=== PATIENT | female | born 1985 | race Caucasian/White ===

== ENCOUNTER 2016-06-13 22:40 | Emergency (ER) | payer SELFPAY ==
[~2016-06-13] VITALS: Ht 160 cm; Wt 67.5 kg
[2016-06-13 22:46] VITALS: Ht 160 cm; Wt 67.5 kg
[2016-06-14] MEDS ORDERED: SOD CHLORIDE 0.9% 1,000 ML IV STA (02:14)
--- NOTE | 2016-06-14 02:39 | ERD ---
ER Documentation Chief Complaint Date/Time DATE: 06/14/16 TIME: 02:36 Chief Complaint body rashes w/ itchines x 2 days, abd lower abd pain x 3 days HPI 30-year-old female presents here in emergency department for multiple complaints. Patient is complaining of rash all over the body and itchiness for the last 2 days. Patient denies eating something new or different. Patient did not take any medications up is symptoms. Patient does not have any lid swelling , tongue swelling or stridor. Patient does not have any shortness breath or wheezing. Patient also is complaining of lower abdominal pain, sharp pain, 8/10 scale, accompanied with vomiting. Patient has history of Crohn's disease. Patient does not have any blood in the stool or black stool at this time. Patient denies any diarrhea or constipation. Patient denies any hematuria or dysuria. Patient denies any flank pain. ROS All systems reviewed and are negative except as per history of present illness. Medications Home Meds Reported Medications [none] Unknown Strength No Conflict Check 06/14/16 Allergies Allergies: Coded Allergies: metoclopramide (Verified Allergy, Unknown, 06/13/16) prochlorperazine (Verified Allergy, Unknown, 06/13/16) PMhx/Soc History of Surgery: Yes (appendectomy, cholecystectomy, hernia repair) Hx Miscellaneous Medical Probl: Yes (Crohn's disease) FmHx Family History: No coronary disease, No diabetes, No other Physical Exam Vitals Vital Signs Date Time Temp Pulse Resp B/P Pulse Ox O2 Delivery O2 Flow Rate FiO2 06/13/16 22:46 97.8 112 20 133/80 100 Physical Exam GENERAL: The patient is well developed and appropriate for usual state of health, in no apparent distress. CHEST: Clear to auscultation bilaterally. There are no rales, wheezes or rhonchi. HEART: Regular rate and rhythm. No murmurs, clicks, rubs or gallops. No S3 or S4. ABDOMEN: Soft, generalized tenderness noted, nondistended. Good bowel sounds. No rebound or guarding. No gross peritonitis. No gross organomegaly or masses. No Perea sign or McBurney point tenderness. BACK: No midline or flank tenderness. EXTREMITIES: Equal pulses bilaterally. There is no peripheral clubbing, cyanosis or edema. No focal swelling or erythema. Full range of motion. Grossly neurovascularly intact. NEURO: Alert and oriented. Cranial nerves 2-12 intact. Motor strength in all 4 extremities with 5/5 strength. Sensation grossly intact. Normal speech and gait. SKIN: Maculopapular rash noted in upper extremities There is no apparent ecchymosis or petechia. The skin is warm and dry. HEMATOLOGIC AND LYMPHATIC: There is no evidence of excessive bruising or lymphedema. No gross cervical, axillary, or inguinal lymphadenopathy. Result Diagram: 06/14/1624906/14/16249 Results 24 hrs Laboratory Tests Test 06/14/16 02:50 Alanine Aminotransferase (ALT/SGPT) 43IU/L Albumin 4.6g/dl Albumin/Globulin Ratio 1.58 Alkaline Phosphatase 82IU/L Anion Gap 21 Aspartate Amino Transf (AST/SGOT) 37IU/L Basophils # 0.010^3/ul Basophils % 0.4% Blood Morphology Comment Blood Urea Nitrogen 11mg/dl Calcium Level 9.7mg/dl Carbon Dioxide Level 24mmol/L Chloride Level 100mmol/L Creatinine 0.62mg/dl Direct Bilirubin 0.00mg/dl Eosinophils # 0.110^3/ul Eosinophils % 1.0% Globulin 2.90g/dl Glucose Level 90mg/dl Hematocrit 39.2% Hemoglobin 13.1g/dl Indirect Bilirubin 0.2mg/dl Lipase 49U/L Lymphocytes # 1.110^3/ul Lymphocytes % 10.8% Mean Corpuscular Hemoglobin 29.4pg Mean Corpuscular Hemoglobin Concent 33.5g/dl Mean Corpuscular Volume 87.9fl Mean Platelet Volume 9.4fl Monocytes # 0.510^3/ul Monocytes % 5.2% Neutrophils # 8.210^3/ul Neutrophils % 82.6% Nucleated Red Blood Cells # 0.010^3/ul Nucleated Red Blood Cells % 0.0/100WBC Platelet Count 84669^3/UL Potassium Level 4.1mmol/L Red Blood Count 4.4610^6/ul Red Cell Distribution Width 16.4% Sodium Level 141mmol/L Total Bilirubin 0.2mg/dl Total Protein 7.5g/dl Urine Bacteria MODERATE Urine Bilirubin 2+ Urine Clarity CLOUDY Urine Color NATHAN Urine Glucose NEGATIVE% Urine Hemoglobin NEGATIVE Urine Ictotest NEGATIVE Urine Ketones 3+ Urine Leukocyte Esterase NEGATIVE Urine Microscopic RBC 0-2/HPF Urine Microscopic WBC 0-2/HPF Urine Mucus MODERATE Urine Nitrite POSITIVE Urine Specific [place] >=1.030 Urine Squamous Epithelial Cells FEW Urine Total Protein TRACE Urine Urobilinogen 1.0 E.U./dL Urine pH 6.5 White Blood Count 9.910^3/ul Current Medications Medications (Trade) Dose Ordered Sig/Kesha Route PRN Reason Start Time Stop Time Status Last Admin Dose Admin Sodium Chloride (NS) 1,000 ml @ 1,000 mls/hr Q1H STAT IV 06/14/16 02:14 06/14/16 03:13 DC 06/14/16 03:02 Normal saline IV bolus was given here in emergency department for rehydration, patient tolerated IV fluids. PROCEDURE: CT of the abdomen and pelvis without contrast CLINICAL INDICATION: Abdominal Pain. TECHNIQUE: Spiral CT images through the abdomen and pelvis without the use of contrast. The administered radiation dose is CTDI 9.83 and DLP 538.67. One or more of the following dose reduction techniques were used: automated exposure control, adjustment of the mA and/or kV according to patient size, or use of iterative reconstruction technique. COMPARISON: None FINDINGS: Lack of oral and intravenous contrast somewhat limits evaluation. Slight dependent atelectasis of the lung bases is seen. No pleural effusion is seen. The liver, spleen, adrenals, kidneys, and pancreas are unremarkable in appearance. Clips are seen from prior cholecystectomy.. Evaluation of the bowel is limited by lack of oral contrast. There may be mild wall thickening of several jejunal loops. Surgical anastomotic suture is seen in the region of right lower quadrant bowel loops. Clips are seen in the right pelvis. The appendix is not definitely identified. Small right lower quadrant lymph nodes are seen. The bladder, uterus, and adnexal structures are unremarkable in appearance. There is no evidence for diverticulitis. No definite free air or abscess. No adenopathy or ascites is seen. Minimal areas of stranding in the subcutaneous fat of the abdomen pelvis are likely due to areas of prior injection. There is mild degenerative change of the spine. IMPRESSION: Postsurgical changes of the bowel. The appendix is not identified. No gross bowel obstruction or free air. Possible mild wall thickening of several jejunal loops. If bowel pathology is strongly suspected clinically, repeat study with oral contrast would be suggested.. RPTAT: [facility] Physician Freddy Date Time Electronically viewed and signed by Alejandra Lilly Physician on 06/14/2016 03 :33 LE/ CC: GAMALIEL KOENIG NP Procedures/MDM Medical Decision Making: Patient's abdominal pain nonspecific at this time, possible viral, can't be inflammation from her Crohn's disease. At this time, no elevation of white count, low suspicion for sepsis or acute abdomen. There is low suspicion for abdominal emergencies at this time. Patients abdominal exam is normal at this time. Patients radiology exam does not show any abdominal emergencies at this time. There is low suspicion for appendicitis, cholecystitis, abdominal aortic aneurysms or peritonitis at this time. There is low suspicion for sepsis. Patient appears well and is hemodynamically stable. Patient's rash nonspecific at this time, possible dermatitis, possible allergic reaction, at this time,and the of anaphylactic shock. No symptoms of any contagious rash at this time. Disposition: Home. Condition: Stable Prescription Benadryl, tramadol, Zofran Instructions: Patient is advised to take medications as prescribed. Patient is advised to rest, increase fluid intake and do brat diet for next 1-2 days and progress as tolerated. Patient is advised that if symptoms are worse, severe abdominal pain, uncontrolled vomiting, high fever, severe flank pain, worst signs and symptoms, to return to the emergency department immediately. Otherwise, patient can follow up with primary care doctor in 5-7 days. Departure Diagnosis: Primary Impression: Abdominal pain Abdominal location: generalized Qualified Code: R10.84 - Generalized abdominal pain Additional Impression: Rash Condition: Stable Patient Instructions: Abdominal Pain, Self-Care for Skin Rashes Additional Instructions: Patient is advised to take medications as prescribed. Patient is advised to rest, increase fluid intake and do brat diet for next 1-2 days and progress as tolerated. Patient is advised that if symptoms are worse, severe abdominal pain , uncontrolled vomiting, high fever, severe flank pain, worst signs and symptoms , to return to the emergency department immediately. Otherwise, patient can follow up with primary care doctor in 5-7 days. GAMALIEL KOENIG NP Jun 14, 2016 02:39
[2016-06-14 03:13] LABS: BASOPHILS % 0.4 % (0.0-2.0); EOSINOPHILS # 0.1 10^3/ul (0.0-0.5); HEMATOCRIT 39.2 % (37.0-47.0); HEMOGLOBIN 13.1 g/dl (12.0-16.0); LYMPHOCYTES # 1.1 10^3/ul (0.8-2.9); LYMPHOCYTES % 10.8 % (15.0-51.0); MEAN CORPUSCULAR HEMOGLOBIN 29.4 pg (29.0-33.0); MEAN CORPUSCULAR HGB CONC 33.5 g/dl (32.0-37.0); MEAN CORPUSCULAR VOLUME 87.9 fl (82.0-101.0); MEAN PLATELET VOLUME 9.4 fl (7.4-10.4); MONOCYTE # 0.5 10^3/ul (0.3-0.9); MONOCYTES % 5.2 % (0.0-11.0); NEUTROPHIL # 8.2 10^3/ul (1.6-7.5); NEUTROPHILS % 82.6 % (39.0-77.0); PLATELET COUNT 219 10^3/UL (140-440); RED BLOOD COUNT 4.46 10^6/ul (4.20-5.40); RED CELL DISTRIBUTION WIDTH 16.4 % (11.5-14.5); UNCORRECTED WBC 9.9 10^3/ul (4.8-10.8); WHITE BLOOD COUNT 9.9 10^3/ul (4.8-10.8)
[2016-06-14 03:14] LABS: CONDITION 1; LH ANALYZER COMMENTS 1
[2016-06-14 03:22] LABS: ALBUMIN 4.6 g/dl (3.3-4.9)
[2016-06-14 03:23] LABS: POTASSIUM 4.1 mmol/L (3.5-5.1)
[2016-06-14 03:24] LABS: ADD UMIC YES; URINE BILIRUBIN (Dip) 2+ (NEGATIVE); URINE BLOOD (Dip) NEGATIVE (NEGATIVE); URINE COLOR AMBER (YELLOW); URINE GLUCOSE (Dip) NEGATIVE (NEGATIVE); URINE KETONES (Dip) 3+ (NEGATIVE); URINE LEUKOCYTE ESTERASE (Dip) NEGATIVE (NEGATIVE); URINE NITRITE (Dip) POSITIVE (NEGATIVE); URINE TOTAL PROTEIN (Dip) TRACE (NEGATIVE); URINE UROBILINOGEN (Dip) 1.0 E.U./dL (0.1-1.0)
[2016-06-14 03:25] LABS: ALBUMIN/GLOBULIN RATIO 1.58; BILIRUBIN,INDIRECT 0.2 mg/dl (0-1.1); BILIRUBIN,TOTAL 0.2 mg/dl (0.2-1.3); CREATININE 0.62 mg/dl (0.44-1.00); TOTAL PROTEIN 7.5 g/dl (6.1-8.1)
[2016-06-14 03:26] LABS: CALCIUM 9.7 mg/dl (8.4-10.2)
--- NOTE | 2016-06-14 03:33 | RADRPT ---
PROCEDURE: CT of the abdomen and pelvis without contrast CLINICAL INDICATION: Abdominal Pain. TECHNIQUE: Spiral CT images through the abdomen and pelvis without the use of contrast. The admin istered radiation dose is CTDI 9.83 and DLP 538.67. One or more of the following dose reduction debra hniques were used: automated exposure control, adjustment of the mA and/or kV according to patient s ize, or use of iterative reconstruction technique. COMPARISON: None FINDINGS: Lack of oral and intravenous contrast somewhat limits evaluation. Slight dependent atelectasis of the lung bases is seen. No pleural effusion is seen. The liver, spleen, adrenals, kidneys, and pancreas are unremarkable in appearance. Clips are seen f rom prior cholecystectomy.. Evaluation of the bowel is limited by lack of oral contrast. There may be mild wall thickening of several jejunal loops. Surgical anastomotic suture is seen in the regio n of right lower quadrant bowel loops. Clips are seen in the right pelvis. The appendix is not def initely identified. Small right lower quadrant lymph nodes are seen. The bladder, uterus, and adne xal structures are unremarkable in appearance. There is no evidence for diverticulitis. No definit e free air or abscess. No adenopathy or ascites is seen. Minimal areas of stranding in the subcutane ous fat of the abdomen pelvis are likely due to areas of prior injection. There is mild degenerativ e change of the spine. IMPRESSION: Postsurgical changes of the bowel. The appendix is not identified. No gross bowel obstruction or f ree air. Possible mild wall thickening of several jejunal loops. If bowel pathology is strongly osiel pected clinically, repeat study with oral contrast would be suggested.. RPTAT: [facility] Physician Freddy Date Time Electronically viewed and signed by Alejandra Lilly Physician on 06/14/2016 03:33 LE/
[2016-06-14 03:46] LABS: ICTOTEST NEGATIVE (NEGATIVE)
[2016-06-14 03:47] LABS: SQUAMOUS EPITHELIAL CELL,UR FEW; URINE RBCS 0-2 /HPF (0)
[2016-06-14 03:48] LABS: BACTERIA,URINE MODERATE; MUCUS,URINE MODERATE
[2016-06-14] MEDS ORDERED: BEN50 PO (04:02)
[2016-06-14] MEDS ORDERED: TRAM50TA2 PO (04:02)
[2016-06-14 04:44] VITALS: BP 123/83; PULSE 93; RESP 18; TEMP 98.5
== END 2016-06-14 04:44 | disposition home or self-care (01) ==
LOC: FTE 22:40
DX: R10.84 Generalized abdominal pain (principal)
CPT/HCPCS: 74176; 80053; 81001; 81003; 83690; 85025; J7030; 36415